=== PATIENT | male | born 1970 | race Caucasian/White ===

== ENCOUNTER 2018-06-21 08:45 | Outpatient (CLI) | payer OTHER ==
--- NOTE | 2018-06-21 13:02 | DI ---
Exam: Seven views of the cervical spine with flexion and extension radiographs. Comparison: None available. Reason for exam: Sports exam FINDINGS: Multilevel degenerative disease without evidence of acute fracture or listhesis. There is chronic appearing vertebral body height loss in the lower cervical spine. There is straightening of the cervical lordotic curve. The prevertebral soft tissues are within normal limits. The dens appe ars intact. No abnormal motion segments are seen with flexion or extension radiographs. Impression: 1. No acute fracture or listhesis in the cervical spine. Chronic appearing vertebral body height lo ss is seen in the lower cervical spine. If clinical concern exists, MRI could be performed for furth er characterization. 2. Multilevel degenerative disease with intervertebral body disc space height narrowing and osteophy te formation. 3. No abnormal motion segments are seen with flexion or extension radiographs.
--- NOTE | 2018-06-27 08:58 | ECHOCOLOR ---
Date of Exam: 06/21/18 Ordering Physician: DR. BABAR HILARIO Reason for Echo: DOWNS SYNDROME, DYSPNEA, SPORTS EXAM M-Mode Normal Adult Results LV Dimensions Normal Adult Results AoV Opening excursions >1.6 >1.6 LVEDD-base- 3.5-5.8 4.5 Ao root dimensions 2.0-3.7 3.0 LVESD-base- 3.1-4.6 L. Atrium dimensions 1.9-3.8 4.0 Post. Wall thickness 0.8-1.1 1.2 IV septum (thickness) 0.7-1.2 1.3 Post. Wall excursion 0.72-1.3 NORMAL Septal motion NORMAL Systolic motion R. Ventricular cavity 1.5-2.0 NORMAL LVEF 60% 58% Paradoxical septal wall motion NORMAL 2-D: 2-D M Mode Echocardiogram was performed using apical four chamber and left parasternal long and short axis views. Mitral, tricuspid and aortic valves appear to be normal. Contractility of the left ventricle seems to be normal, so is the cavity size. Mild Left atrial cavity enlargement. Aortic root appears to be normal. There is no pericardial effusion. There is no thrombus noted in the left ventricular or left aortic cavity. No mitral valve prolapse noted. DOPPLER WITH COLOR FLOW: NORMAL VALVULAR FLOW INDICES, TRIVIAL TRICUSPID AND PULMONARY REGURGITATION M-MODE: MV: NORMAL AV: NORMAL TV: NORMAL PV: CHAMBER SIZE: MILD LEFT ATRIAL CAVITY ENLARGEMENT WALL MOTION: NORMAL PERICARDIUM: SLIGHT PERICARDIAL EFFUSION INTERPRETATION: 1. LEFT VENTRICULAR HYPERTROPHY WITH MILD LEFT ATRIAL CAVITY ENLARGEMENT 2. NORMAL LEFT VENTRICULAR CONTRACTILITY 3. TRIVIAL TRICUSPID REGURGITATION AND PULMONARY REGURGITATION 4. NORMAL VALVULAR FLOW INDICES 5. SLIGHT PERICARDIAL EFFUSION MTDD
== END 2018-06-21 08:46 | disposition home or self-care (01) ==
LOC: CAR 08:45
PROVIDERS: ATTEND Family Medicine
DX: Q90.9 Down syndrome, unspecified (principal); Z02.5 Encounter for examination for participation in sport; R06.00 Dyspnea, unspecified